=== PATIENT | male | born 1940 | race Caucasian/White ===

== ENCOUNTER 2018-03-24 06:51 | Day surgery (SDC) | payer OTHER ==
[~2018-03-24] VITALS: Ht 171.4 cm; Wt 77.2 kg
[~2018-03-24 06:51] MED LIST: AMLO5TAB2 PO; ASPI-496 PO; ATOR20TA PO; CHOL100011 PO; CYAN1TAB29 PO; LISI40TA PO; METO25TA91 PO; MULT-516 PO; POTA10TA5 PO
[2018-03-24] MEDS ORDERED: LACTATED RINGERS 1,000 ML IV SCH (07:57)
[2018-03-24 08:24] VITALS: BP 143/80
[2018-03-24 08:45] LABS: INTERNATIONAL NORMALIZED RATIO 0.97 (0.93-1.1)
[2018-03-24] MEDS ORDERED: DEXAMETHASONE 4 MG/ML, 1ML ONE (09:25)
[2018-03-24] MEDS ORDERED: ONDANSETRON 2MG/ML, 2ML ONE (09:25)
[2018-03-24] MEDS ORDERED: PROPOFOL 10 MG/ML, 20ML ONE (09:25)
[2018-03-24] MEDS ORDERED: EPHEDRINE 50 MG/ML, 1ML ONE (09:25)
[2018-03-24] MEDS ORDERED: CEFAZOLIN 1,000 MG ONE (09:25)
[2018-03-24] MEDS ORDERED: FENTANYL PF 100 MCG/2ML ONE (09:25)
[2018-03-24] MEDS ORDERED: METOCLOPRAMIDE 5 MG/ML, 2ML ONE (09:25)
[2018-03-24] MEDS ORDERED: ONDANSETRON 2MG/ML, 2ML IVPush PRN (10:00)
[2018-03-24] MEDS ORDERED: LABETALOL 5MG/ML, 20ML IV PRN (10:00)
[2018-03-24] MEDS ORDERED: FENTANYL PF 100 MCG/2ML IV PRN (10:00)
[2018-03-24] MEDS ORDERED: MEPERIDINE/PF 25MG/0.5ML IVPush PRN (10:00)
[2018-03-24] MEDS ORDERED: MIDAZOLAM 1 MG/ML, 2ML IV PRN (10:00)
[2018-03-24] MEDS ORDERED: OXYcodone 5 MG/5 ML ORAL.SOL UDC PO PRN (10:00)
[2018-03-24] MEDS ORDERED: HYDROmorphone 1 MG/ML, 1ML IV PRN (10:00)
[2018-03-24] MEDS ORDERED: ALBUTEROL SULFATE 2.5 MG/3 ML ONE (11:02)
[2018-03-24] MEDS ORDERED: ALBUTEROL SULFATE 2.5 MG/3 ML NPPB ONE (11:30)
== END 2018-03-24 13:00 ==
LOC: OUT 06:51
PROVIDERS: ATTEND Urology
DX: N20.0 Calculus of kidney (principal); I10 Essential (primary) hypertension; F17.210 Nicotine dependence, cigarettes, uncomplicated; J44.9 Chronic obstructive pulmonary disease, unspecified; Z72.89 Other problems related to lifestyle; Z85.46 Personal history of malignant neoplasm of prostate; Z86.73 Personal history of transient ischemic attack (TIA), and cerebral infarction without residual deficits
CPT/HCPCS: 36415; 50590; 85610; 93005; 94640; J0330; J0690; J1100; J2405; J2704; J2765; J3010; J7120

== ENCOUNTER → 2019-12-06 | Outpatient (CLI) | payer OTHER ==
[~2019-12-06] MED LIST changes: +AMLO-150 PO; -AMLO5TAB2 PO
== END | disposition home or self-care (01) ==
LOC: CARD 12:32
PROVIDERS: ATTEND Nurse Practitioner Acute Care
DX: F02.80 Dementia in other diseases classified elsewhere, unspecified severity, without behavioral disturbance, psychotic disturbance, mood disturbance, and anxiety (principal)
CPT/HCPCS: 95819